=== PATIENT | female | born 1950 | race Caucasian/White ===

== ENCOUNTER 2018-07-31 15:30 | Emergency (ER) | payer SELFPAY ==
[2018-07-31] MEDS: LIDOCAINE 1% (MDV) 20 ML INJ SC (17:17)
[2018-07-31] MEDS: ACETAMINOPHEN 325 MG TAB PO (17:17)
[2018-07-31] MEDS: DIPHTH/TET/ACEL PERTUSS (ADULT) 0.5 ML VIAL IM* (17:18)
== END 2018-07-31 18:42 | disposition home or self-care (01) ==
LOC: FTE 15:30
DX: S91.349A Puncture wound with foreign body, unspecified foot, initial encounter (principal); W25.XXXA Contact with sharp glass, initial encounter; Y92.9 Unspecified place or not applicable; Z23 Encounter for immunization
CPT/HCPCS: 10120; 73630-LT; 90471; 90715; 99283-25

== ENCOUNTER 2018-08-02 10:34 | Emergency (ER) | payer SELFPAY | END 2018-08-02 12:09 | disposition home or self-care (01) | LOC: FTE 10:34 | DX: Z48.01 Encounter for change or removal of surgical wound dressing (principal) | CPT/HCPCS: 73630; 73630-LT; 99283-25 ==